=== PATIENT | male | born 1940 | race Caucasian/White ===

== ENCOUNTER 2017-07-14 08:17 | Observation (INO) | payer MEDICARE ==
[~2017-07-14] VITALS: Ht 182.9 cm; Wt 90.7 kg
[2017-07-14] MEDS ORDERED: ALBUTEROL/IPRATROPIUM 3 ML NEB NEB ONE ×2 (08:30→11:00)
[2017-07-14] MEDS ORDERED: DEXAMETHASONE SOD PHOS 10 MG/1 ML VIAL IV ONE (08:30)
[2017-07-14] MEDS ORDERED: MAGNESIUM SULF 1GRAM/DEXTROSE 100 ML IV ONE (08:30)
[2017-07-14 08:49] LABS: BASOPHILS % 0.3 % (0.0-1.0); EOSINOPHILS # (AUTO) 0.1 (0.0-0.4); EOSINOPHILS % 0.9 % (0.0-6.0); HEMATOCRIT 41.1 % (38.2-49.6); HEMOGLOBIN 13.7 g/dL (14.0-18.0); LYMPHOCYTES # (AUTO) 1.6 (1.0-3.2); LYMPHOCYTES % 13.6 % (18.0-39.1); MEAN CORPUSCULAR HEMOGLOBIN 30.2 pg (28-32); MEAN CORPUSCULAR HGB CONC 33.3 g/dL (31-35); MEAN CORPUSCULAR VOLUME 90.5 fL (81-99); MONOCYTES % 8.5 % (4.4-11.3); NEUTROPHILS # (AUTO) 9.1 (2.1-6.9); NEUTROPHILS % 76.1 % (38.7-80.0); PLATELET COUNT 216 x10e3/uL (140-360); RED BLOOD COUNT 4.54 x10e6/uL (4.3-5.7); RED CELL DISTRIBUTION WIDTH 13.7 % (11.7-14.4)
[2017-07-14 09:02] LABS: ALANINE AMINOTRANSFERASE 10 IU/L (0-55); ALBUMIN 3.5 g/dL (3.5-5.0); ALKALINE PHOSPHATASE 68 IU/L (40-150); ANION GAP 15.3 mmol/L (8-16); BLOOD UREA NITROGEN 14 mg/dL (7-26); BUN/CREATININE RATIO 15 (6-25); CALCIUM 9.4 mg/dL (8.4-10.2); CARBON DIOXIDE 27 mmol/L (22-29); CHLORIDE 101 mmol/L (98-107); CREATININE, SERUM 0.95 mg/dL (0.72-1.25); EST GLOMERULAR FILTRATION RATE > 60 ML/MIN (60-); GLUCOSE 185 mg/dL (74-118); POTASSIUM 4.3 mmol/L (3.5-5.1); SODIUM 139 mmol/L (136-145)
[2017-07-14] MEDS ORDERED: FLOMAX0.4 MG PO (09:05)
[2017-07-14] MEDS ORDERED: METOPROLOL TART25 MG PO (09:05)
[2017-07-14] MEDS ORDERED: METFORMIN HCL500 MG PO (09:05)
[2017-07-14] MEDS ORDERED: KLONOPIN1 MG PO (09:05)
[2017-07-14] MEDS ORDERED: POTASSIUM CHLO20 ME1 PO (09:05)
[2017-07-14] MEDS ORDERED: CRESTOR10 MG PO (09:05)
[2017-07-14] MEDS ORDERED: LISINOPRIL10 MG PO (09:05)
[2017-07-14] MEDS ORDERED: VENTOLIN HFA18 GM INH (09:05)
[2017-07-14] MEDS ORDERED: LORATADINE10 MG PO (09:05)
[2017-07-14] MEDS ORDERED: ASPIR 8181 MG PO (09:05)
[2017-07-14] MEDS ORDERED: MONTELUKAST SOD10 MG PO (09:05)
[2017-07-14] MEDS ORDERED: ALBUTEROL2.5 MG/3 M NEB (09:05)
[2017-07-14] MEDS ORDERED: FUROSEMIDE40 MG PO (09:05)
--- NOTE | 2017-07-14 10:04 | Diagnostic Imaging Report ---
PROCEDURE:CHEST SINGLE (PORTABLE) TECHNIQUE:Single view chest totaling 2 radiographs INDICATION:Shortness of breath; COPD COMPARISON:None. FINDINGS: Ill-defined bilateral interstitial opacity without focal airspace disease. No pleural effusion. Normal heart size. No pleural effusions. Postoperative sequela sternotomy with intact one wires. Intact skeleton. CONCLUSION: Ill-defined bilateral lower lobe predominant interstitial opacity. Consider bronchitis. No evidence of pneumonia. Dictated by: René Land M.D. on 07/14/2017 at 10:05 Electronically approved by: René Land M.D. on 07/14/2017 at 10:05
[2017-07-14] MEDS ORDERED: LEVOFLOXACIN 500MG/D5W 100ML 100 ML IV ONE ×2 (10:45→11:30)
[2017-07-14] MEDS ORDERED: FUROSEMIDE INJ 10 MG/ML 4 ML VIAL IV ONE (10:45)
[2017-07-14] MEDS ORDERED: SODIUM CHLORIDE FLUSH 10 ML SYR INJ PRN (11:00)
[2017-07-14] MEDS ORDERED: LEVOFLOXACIN 500MG/D5W 100ML IV SCH (11:00)
--- OUTSIDE RECORDS SUMMARY | 2017-07-14 11:12 | XMS REPORT ---
Author [facility] Organization [facility] Address Unknown Phone Unavailable Care Team Providers Care Carburizer Name Role Phone GEORGIANA KAUFFMAN Unavailable Unavailable Problems This patient has no known problems. Allergies, Adverse Reactions, Alerts This patient has no known allergies or adverse reactions. Medications This patient has no known medications. Results Test Description Test Time Test Comments Text Results Atomic Results Result Comments CHEST SINGLE (PORTABLE) [place] [id number] [place] [id number] Patient Name: RIVER REDDING MR #: [id number] : 1940 Age/Sex: 77/M Req #: [id number] [facility] Physician: Ordered by: GEORGIANA KAUFFMAN MD Report #: [id number] Location: ER Room/Bed: Procedure: [id number] DX/CHEST SINGLE (PORTABLE) Exam Date: 07/14/17 Exam Time: 924 REPORT STATUS: Signed PROCEDURE: CHEST SINGLE (PORTABLE) TECHNIQUE: Single view chest totaling 2 radiographs INDICATION: Shortness of breath; COPD COMPARISON: None. FINDINGS : Ill-defined bilateral interstitial opacity without focal airspace disease. No pleural effusion. Normal heart size. No pleural effusions. Postoperative sequela sternotomy with intact one wires. Intact skeleton. CONCLUSION: Ill-defined bilateral lower lobe predominant interstitial opacity. Consider bronchitis. No evidence of pneumonia. Dictated by: Suhail Land M.D. on 07/14/2017 at 10:05 Electronically approved by: Suhail Land M.D. on 07/14/2017 at 10:05 Dictated By: SUHAIL LAND MD 1005 Transcribed By: AYDEE on 07/14/17 1005 COPY TO: GEORGIANA KAUFFMAN MD
[2017-07-14] MEDS: ALBUTEROL/IPRATROPIUM 3 ML NEB NEB SCH ×3 (15:00→23:30)
[2017-07-14] MEDS: METHYLPREDNISOLONE SOD SUCC 125 MG/2ML VIAL IV SCH ×2 (15:37→21:22)
[2017-07-14 16:14] VITALS: BP 155/85
[2017-07-14 16:51] VITALS: BP 155/85
[2017-07-14] MEDS ORDERED: FAMOTIDINE 20 MG/2 ML VIAL IV SCH (17:00)
[2017-07-14] MEDS: ENOXAPARIN SOD INJ 40 MG/0.4 ML SYR SC SCH (17:20)
[2017-07-14] MEDS: FAMOTIDINE 20 MG TAB PO SCH (17:20)
[2017-07-14] MEDS: GUAIFENESIN 600MG/DEXTROMETHORPHAN 30MG TABSR PO SCH ×2 (17:20→23:25)
[2017-07-14] MEDS: METOPROLOL TARTRATE 25 MG TAB PO SCH (17:30)
[2017-07-14] MEDS: METFORMIN HCL 500 MG TAB PO SCH (18:00)
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
[2017-07-14] MEDS ORDERED: DEXTROSE 50% SYRINGE 50 ML IV PRN (18:15)
[2017-07-14 20:00] VITALS: BP 132/73
[2017-07-14] MEDS ORDERED: SIMVASTATIN 40 MG TAB PO SCH (21:00)
[2017-07-14 21:20] VITALS: BP 132/73
[2017-07-14] MEDS: CLONAZEPAM 1 MG TAB PO SCH (21:22)
[2017-07-14] MEDS: LISINOPRIL 10 MG TAB PO SCH (21:22)
[2017-07-14] MEDS: SIMVASTATIN 20 MG TAB PO SCH (21:22)
[2017-07-14] MEDS: MONTELUKAST SODIUM 10 MG TAB PO SCH (21:22)
[2017-07-14] MEDS: INSULIN REGULAR, HUMAN 100 UNIT/1 ML 3ML VIAL SQ SCH (21:30)
[2017-07-15] VITALS (7 sets, daily range): BP systolic 111–152; BP diastolic 65–84
[2017-07-15] MEDS: ALBUTEROL/IPRATROPIUM 3 ML NEB NEB SCH ×5 (03:00→20:07)
[2017-07-15] MEDS: GUAIFENESIN 600MG/DEXTROMETHORPHAN 30MG TABSR PO SCH ×4 (05:57→23:38)
[2017-07-15] MEDS: METHYLPREDNISOLONE SOD SUCC 125 MG/2ML VIAL IV SCH ×3 (05:57→20:56)
[2017-07-15 06:44] LABS: BASOPHILS % 0.1 % (0.0-1.0); HEMATOCRIT 37.5 % (38.2-49.6); HEMOGLOBIN 12.5 g/dL (14.0-18.0); LYMPHOCYTES # (AUTO) 0.8 (1.0-3.2); LYMPHOCYTES % 7.8 % (18.0-39.1); MEAN CORPUSCULAR HEMOGLOBIN 30.2 pg (28-32); MEAN CORPUSCULAR HGB CONC 33.3 g/dL (31-35); MEAN CORPUSCULAR VOLUME 90.6 fL (81-99); MONOCYTES # (AUTO) 0.5 (0.2-0.8); MONOCYTES % 4.9 % (4.4-11.3); NEUTROPHILS # (AUTO) 9.1 (2.1-6.9); NEUTROPHILS % 86.8 % (38.7-80.0); PLATELET COUNT 215 x10e3/uL (140-360); RED BLOOD COUNT 4.14 x10e6/uL (4.3-5.7); RED CELL DISTRIBUTION WIDTH 13.2 % (11.7-14.4)
[2017-07-15 07:15] LABS: ANION GAP 13.8 mmol/L (8-16); BLOOD UREA NITROGEN 21 mg/dL (7-26); BUN/CREATININE RATIO 22 (6-25); CALCIUM 8.9 mg/dL (8.4-10.2); CARBON DIOXIDE 27 mmol/L (22-29); CHLORIDE 95 mmol/L (98-107); CREATININE, SERUM 0.96 mg/dL (0.72-1.25); EST GLOMERULAR FILTRATION RATE > 60 ML/MIN (60-); GLUCOSE 165 mg/dL (74-118); POTASSIUM 3.8 mmol/L (3.5-5.1); SODIUM 132 mmol/L (136-145)
[2017-07-15] MEDS: INSULIN REGULAR, HUMAN 100 UNIT/1 ML 3ML VIAL SQ SCH ×4 (07:30→19:56)
[2017-07-15] MEDS ORDERED: FUROSEMIDE 40 MG TAB PO SCH (09:00)
[2017-07-15] MEDS: FAMOTIDINE 20 MG TAB PO SCH ×2 (09:24→17:49)
[2017-07-15] MEDS: ASPIRIN 81 MG CHEW TAB PO SCH (09:24)
[2017-07-15] MEDS: METFORMIN HCL 500 MG TAB PO SCH ×2 (09:24→17:49)
[2017-07-15] MEDS: FUROSEMIDE 20 MG TAB PO SCH (09:25)
[2017-07-15] MEDS: POTASSIUM CHLORIDE 20 MEQ TAB CR PO SCH (09:25)
[2017-07-15] MEDS: TAMSULOSIN HCL 0.4 MG CAP PO SCH (09:25)
[2017-07-15] MEDS: LEVOFLOXACIN 500MG/D5W 100ML 100 ML IV SCH (14:39)
[2017-07-15] MEDS: ENOXAPARIN SOD INJ 40 MG/0.4 ML SYR SC SCH (17:49)
[2017-07-15] MEDS: METOPROLOL TARTRATE 25 MG TAB PO SCH (17:49)
[2017-07-15] MEDS: SIMVASTATIN 20 MG TAB PO SCH (20:56)
[2017-07-15] MEDS: CLONAZEPAM 1 MG TAB PO SCH (20:56)
[2017-07-15] MEDS: LISINOPRIL 10 MG TAB PO SCH (20:56)
[2017-07-15] MEDS: MONTELUKAST SODIUM 10 MG TAB PO SCH (20:56)
[2017-07-16] VITALS: BP 131/72
[2017-07-16 04:00] VITALS: BP 112/58
[2017-07-16] MEDS: GUAIFENESIN 600MG/DEXTROMETHORPHAN 30MG TABSR PO SCH ×3 (05:01→17:46)
[2017-07-16] MEDS: METHYLPREDNISOLONE SOD SUCC 125 MG/2ML VIAL IV SCH ×2 (05:01→15:44)
[2017-07-16 06:38] LABS: BASOPHILS % 0.1 % (0.0-1.0); HEMATOCRIT 34.4 % (38.2-49.6); HEMOGLOBIN 11.7 g/dL (14.0-18.0); LYMPHOCYTES # (AUTO) 0.7 (1.0-3.2); LYMPHOCYTES % 8.2 % (18.0-39.1); MEAN CORPUSCULAR HEMOGLOBIN 30.2 pg (28-32); MEAN CORPUSCULAR VOLUME 88.7 fL (81-99); MONOCYTES # (AUTO) 0.5 (0.2-0.8); MONOCYTES % 5.6 % (4.4-11.3); NEUTROPHILS # (AUTO) 7.6 (2.1-6.9); NEUTROPHILS % 85.3 % (38.7-80.0); PLATELET COUNT 221 x10e3/uL (140-360); RED BLOOD COUNT 3.88 x10e6/uL (4.3-5.7)
[2017-07-16 07:08] LABS: ANION GAP 13.2 mmol/L (8-16); BLOOD UREA NITROGEN 25 mg/dL (7-26); BUN/CREATININE RATIO 28 (6-25); CALCIUM 8.4 mg/dL (8.4-10.2); CARBON DIOXIDE 26 mmol/L (22-29); CHLORIDE 94 mmol/L (98-107); EST GLOMERULAR FILTRATION RATE > 60 ML/MIN (60-); GLUCOSE 162 mg/dL (74-118); MAGNESIUM 1.5 MG/DL (1.3-2.1); POTASSIUM 4.2 mmol/L (3.5-5.1); SODIUM 129 mmol/L (136-145)
[2017-07-16] MEDS: INSULIN REGULAR, HUMAN 100 UNIT/1 ML 3ML VIAL SQ SCH ×3 (07:30→16:30)
[2017-07-16] MEDS: ALBUTEROL/IPRATROPIUM 3 ML NEB NEB SCH ×3 (07:52→15:25)
[2017-07-16 09:03] VITALS: BP 134/77
[2017-07-16] MEDS: FAMOTIDINE 20 MG TAB PO SCH ×2 (09:23→17:46)
[2017-07-16] MEDS: POTASSIUM CHLORIDE 20 MEQ TAB CR PO SCH (09:23)
[2017-07-16] MEDS: METFORMIN HCL 500 MG TAB PO SCH ×2 (09:23→17:46)
[2017-07-16] MEDS: FUROSEMIDE 20 MG TAB PO SCH (09:23)
[2017-07-16] MEDS: ASPIRIN 81 MG CHEW TAB PO SCH (09:23)
[2017-07-16] MEDS: TAMSULOSIN HCL 0.4 MG CAP PO SCH (09:23)
[2017-07-16] MEDS: METOPROLOL TARTRATE 25 MG TAB PO SCH ×2 (09:24→17:46)
[2017-07-16] MEDS: LEVOFLOXACIN 500MG/D5W 100ML 100 ML IV SCH (12:23)
[2017-07-16 12:46] VITALS: BP 132/72
[2017-07-16 16:37] VITALS: BP 146/68
[2017-07-16] MEDS: ENOXAPARIN SOD INJ 40 MG/0.4 ML SYR SC SCH (17:46)
[2017-07-16] MEDS ORDERED: METHYLPREDNISOLONE SOD SUCC 125 MG/2ML VIAL IV SCH (22:00)
[2017-07-16] MEDS ORDERED: METHYLPREDNISOLONE SOD SUCC 40 MG/ML VIAL IV SCH (22:00)
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
== END 2017-07-16 18:24 | disposition left against medical advice (07) ==
LOC: ER 08:17 → ERHOLD 11:08 → IMCU 15:55
PROVIDERS: ADMIT Internal Medicine; ATTEND Internal Medicine
DX: J44.0 Chronic obstructive pulmonary disease with (acute) lower respiratory infection (principal); J18.0 Bronchopneumonia, unspecified organism; J44.1 Chronic obstructive pulmonary disease with (acute) exacerbation; I25.10 Atherosclerotic heart disease of native coronary artery without angina pectoris; Z95.1 Presence of aortocoronary bypass graft; J96.10 Chronic respiratory failure, unspecified whether with hypoxia or hypercapnia; I11.0 Hypertensive heart disease with heart failure; I50.22 Chronic systolic (congestive) heart failure; Z99.81 Dependence on supplemental oxygen; Z87.891 Personal history of nicotine dependence; E11.9 Type 2 diabetes mellitus without complications; Z79.4 Long term (current) use of insulin; J20.9 Acute bronchitis, unspecified; N40.0 Benign prostatic hyperplasia without lower urinary tract symptoms
CPT/HCPCS: 36415 ×3; 71045; 80048 ×2; 80053; 82948 ×3; 83735; 83880 ×2; 84100; 84443; 85025 ×3; 87040; 93005; 93306; 94640 ×6; 97116; 97161; 99284; G0378 ×3; J1100; J1650 ×3; J1940; J1956 ×3; J2930 ×3; J3475

== ENCOUNTER 2019-10-16 01:42 | Inpatient (IN) | payer MEDICARE, OTHER ==
[~2019-10-16] VITALS: Ht 182.9 cm; Wt 90.7 kg
[2019-10-16] VITALS (8 sets, daily range): BP systolic 73–114; BP diastolic 53–112
[~2019-10-16 01:42] MED LIST: ALBUTEROL2.5 MG/3 M NEB; ASPIR 8181 MG PO; CRESTOR10 MG PO; FLOMAX0.4 MG PO; FUROSEMIDE40 MG PO; KLONOPIN1 MG PO; LISINOPRIL10 MG PO; LORATADINE10 MG PO; METFORMIN HCL500 MG PO; METOPROLOL TART25 MG PO; MONTELUKAST SOD10 MG PO; POTASSIUM CHLO20 ME1 PO; VENTOLIN HFA18 GM INH
[2019-10-16] MEDS ORDERED: CEFEPIME 1GM/NS 0.9% 50 ML 50 ML IV STA (01:51)
[2019-10-16] MEDS ORDERED: SODIUM CHLORIDE 0.9% 1000ML 1,000 ML IV STA ×2 (01:52→02:42)
[2019-10-16] MEDS ORDERED: SODIUM CHLORIDE 0.9% 1000ML 1,000 ML ONE (02:00)
[2019-10-16] MEDS ORDERED: SODIUM CHLORIDE 0.9% 500ML 500 ML ONE ×2 (02:00→02:47)
[2019-10-16] MEDS ORDERED: PIPER-TAZ 3.375 GM 50 ML IV STA (02:05)
[2019-10-16 02:20] LABS: BASOPHILS % 0.3 % (0.0-1.0); EOSINOPHILS # (AUTO) 0.1 (0.0-0.4); EOSINOPHILS % 0.5 % (0.0-6.0); HEMATOCRIT 33.8 % (38.2-49.6); HEMOGLOBIN 10.7 g/dL (14.0-18.0); LYMPHOCYTES # (AUTO) 1.7 (1.0-3.2); LYMPHOCYTES % 17.4 % (18.0-39.1); MEAN CORPUSCULAR HEMOGLOBIN 31.3 pg (28-32); MEAN CORPUSCULAR HGB CONC 31.7 g/dL (31-35); MEAN CORPUSCULAR VOLUME 98.8 fL (81-99); MONOCYTES # (AUTO) 1.2 (0.2-0.8); MONOCYTES % 12.5 % (4.4-11.3); NEUTROPHILS # (AUTO) 6.5 (2.1-6.9); PLATELET COUNT 371 x10e3/uL (140-360); RED BLOOD COUNT 3.42 x10e6/uL (4.3-5.7); RED CELL DISTRIBUTION WIDTH 17.1 % (11.7-14.4)
[2019-10-16 02:45] LABS: ALBUMIN 1.4 g/dL (3.5-5.0); ANION GAP 8.6 mmol/L (8-16); CREATININE, SERUM 1.21 mg/dL (0.72-1.25)
--- NOTE | 2019-10-16 02:46 | Diagnostic Imaging Report ---
Examination: Single AP view of the chest. COMPARISON: Portable chest 07/14/2017 INDICATION: Cough, shortness of breath IMPRESSION: 1. Lines and Tubes: None 2. Lungs are grossly clear. No consolidation or effusion. 3. Cardiomediastinal silhouette is normal. Pulmonary vasculature is normal. 4. No acute bony abnormalities. Signed by: Dr. Jeff Dillon M.D. on 10/16/2019 2:43 AM
[2019-10-16 02:52] LABS: CREATINE KINASE MB 1.4 ng/mL (0-5.0)
[2019-10-16 02:56] LABS: INR 0.92; PARTIAL THROMBOPLASTIN TIME 22.9 seconds (23.8-35.5); PROTHROMBIN TIME 12.9 seconds (11.9-14.5)
[2019-10-16 03:02] LABS: POTASSIUM 2.6 mmol/L (3.5-5.1)
[2019-10-16] MEDS ORDERED: POTASSIUM CHLORIDE 20 MEQ TAB CR PO STA (03:02)
[2019-10-16 03:03] LABS: CALCIUM 4.3 mg/dL (8.4-10.2)
[2019-10-16 03:11] LABS: CLARITY,URINE TURBID (CLEAR); COLOR,URINE YELLOW (YELLOW); LEUKOCYTE ESTERASE ,URINE LARGE (NEGATIVE); NITRITE,URINE POSITIVE (NEGATIVE)
[2019-10-16 03:12] LABS: KETONES,URINE NEGATIVE (NEGATIVE); PROTEIN,URINE DIPSTICK 1+ (NEGATIVE); URINE UROBILINOGEN 0.2 mg/dL (0.2 - 1)
[2019-10-16 03:13] LABS: BILIRUBIN,URINE NEGATIVE (NEGATIVE)
[2019-10-16 03:14] LABS: BACTERIA,URINE MANY /HPF; EPITHELIAL CELLS,URINE MANY /LPF; RBC,URINE 21-50 /HPF (0-5); WBC,URINE (MAN) >50 /HPF (0-5)
[2019-10-16] MEDS ORDERED: POTASSIUM CHLORIDE 20MEQ/100ML 100 ML IV ONE (03:15)
[2019-10-16] MEDS ORDERED: VANCOMYCIN 1GM/NS 250 ML 250 ML IV STA (03:34)
--- NOTE | 2019-10-16 03:38 | Emergency Department Note ---
History of Present Illnes History of Present Illness Chief Complaint: Respiratory History of Present Illness This is a 79 year old male arrives to the ED after sustaining a mechanical fall . Chief Complaint Comment 79 Y/O MALE PT ORIENTED TO PERSON, PLACE PRESENTS TO ED WITH REPORT OF FALL WHEN PT WAS ATTEMPTING TO TRANSFER SELF FROM HIS BED TO THE BEDSIDE COMMODE; PT DENIES LOC, DENIES ANY PAIN; 18 GAUGE IV CATH PLACED TO PTS RIGHT AC, BLOOD OBTAINED FOR LAB ANALYSIS, CULTURES, LACTIC, COVID SWAB OBTAINED; EKG PERFORMED AND GIVEN TOE R FOR REVIEW; PT WITH BRUISING IN VARIOUS STAGES OF HEALING NOTED TO BUE; PT IS ON CONT O2 AT HOME VIA NC AT 2 LPM; RESP ARE SHALLOW, UNLABORED, SPO2 98%; URINE SAMPLE OBTAINED VIA STRAIGHT CATH PER MD ORDERS, PT TOLERATED WELL, URINE CLOUDY, SEDIMENT AND FOUL ODOR NOTED Historian: Patient, Faculty Neuropsychologist/EMS Arrival Mode: [facility] Treatment RETAIL INTERIOR DESIGNER: IV Additional Treatment RETAIL INTERIOR DESIGNER: LEFT FA Onset (how long ago): unknown Onset quality: unable to specify Timing of current episode: constant Progression: unable to specify Relieving factors: none Past Medical/Family History Physician Review I have reviewed the patient's past medical and family history. Any updates have been documented here. Past Medical History Recent Fever: No Clinical Suspicion of Infectio: Yes New/Unexplained Change in Ment: No Past Medical History: Hypertension, Diabetes, COPD, CHF, CAD, Anemia, Hyperlipedemia, DVT/PE, Chronic Kidney Disease Other Medical History: PNEUMONIA HYPERKALEMIA HYPOMAGNESEMIA BPH CHRONIC FALLS DYSPHAGIA Past Surgical History: CABG Social History Smoking Cessation: Former smoker Counseling Performed: No Alcohol Use: Daily Any Illegal Drug Use: No TB Exposure/Symptoms: No Physically hurt or threatened: No Family History Family history of heart diseas: Yes Other Last Tetanus: unk Any Pre-Existing Lines (PICC,: No Is patient up to date on immun: Yes Last Flu: denies Last Pneumovax: denies Review of Systems Review of Systems Constitutional: Reports as per HPI, Reports weakness EENTM: Reports no symptoms Cardiovascular: Reports no symptoms Respiratory: Reports no symptoms Gastrointestinal: Reports no symptoms Genitourinary: Reports no symptoms Musculoskeletal: Reports no symptoms Integumentary: Reports no symptoms Neurological: Reports no symptoms Psychological: Reports no symptoms Endocrine: Reports no symptoms Hematological/Lymphatic: Reports no symptoms Physical Exam Related Data Allergies: Coded Allergies: No Known Allergies (Unverified , 07/14/17) Triage Vital Signs Vital Signs Date Time Temp Pulse Resp B/P (MAP) Pulse Ox O2 Delivery O2 Flow Rate FiO2 10/16/19 01:47 97.7 102 24 70/44 98 Vital signs reviewed: Yes Physical Exam CONSTITUTIONAL Constitutional: Present obese, Present ill appearing HENT HENT: Present normocephalic, Present atraumatic, Present oropharynx clear/moist, Present nose normal EYES Eyes: Reports PERRL, Reports conjunctivae normal NECK Neck: Present ROM normal PULMONARY Pulmonary: Present respiratory distress (mild tachypnea with decreased breath sounds in bilateral lower lung bright) CARDIOVASCULAR Cardiovascular: Present regular rhythm, Present heart sounds normal, Present capillary refill normal, Present tachycardia GASTROINTESTINAL GENITOURINARY Genitourinary: Present penis normal SKIN Skin: Present warm, Present dry MUSCULOSKELETAL NEUROLOGICAL Neurological: Present alert, Present no gross motor or sensory deficits PSYCHOLOGICAL Psychological: Present mood/affect normal Results Laboratory Result Diagram: 10/16/19 0154 10/16/19 0154 Laboratory Laboratory Tests Test 10/16/19 02:35 10/16/19 01:54 White Blood Count 9.52 x10e3/uL (4.8-10.8) Red Blood Count 3.42 x10e6/uL (4.3-5.7) Hemoglobin 10.7 g/dL (14.0-18.0) Hematocrit 33.8 % (38.2-49.6) Mean Corpuscular Volume 98.8 fL (81-99) Mean Corpuscular Hemoglobin 31.3 pg (28-32) Mean Corpuscular Hemoglobin Concent 31.7 g/dL (31-35) Red Cell Distribution Width 17.1 % (11.7-14.4) Platelet Count 371 x10e3/uL (140-360) Neutrophils (%) (Auto) 68.0 % (38.7-80.0) Lymphocytes (%) (Auto) 17.4 % (18.0-39.1) Monocytes (%) (Auto) 12.5 % (4.4-11.3) Eosinophils (%) (Auto) 0.5 % (0.0-6.0) Basophils (%) (Auto) 0.3 % (0.0-1.0) Neutrophils # (Auto) 6.5 (2.1-6.9) Lymphocytes # (Auto) 1.7 (1.0-3.2) Monocytes # (Auto) 1.2 (0.2-0.8) Eosinophils # (Auto) 0.1 (0.0-0.4) Basophils # (Auto) 0.0 (0.0-0.1) Absolute Immature Granulocyte (auto 0.12 x10e3/uL (0-0.1) Prothrombin Time 12.9 seconds (11.9-14.5) Prothromb Time International Ratio 0.92 Activated Partial Thromboplast Time 22.9 seconds (23.8-35.5) Urine Color Yellow (YELLOW) Urine Clarity Turbid (CLEAR) Urine pH 6 (5 - 7) Urine Specific [place] 1.030 (1.010-1.025) Urine Protein 1+ (NEGATIVE) Urine Glucose (UA) Negative (NEGATIVE) Urine Ketones Negative (NEGATIVE) Urine Blood Large (NEGATIVE) Urine Nitrite Positive (NEGATIVE) Urine Bilirubin Negative (NEGATIVE) Urine Urobilinogen 0.2 mg/dL (0.2 - 1) Urine Leukocyte Esterase Large (NEGATIVE) Urine RBC 21-50 /HPF (0-5) Urine WBC >50 /HPF (0-5) Urine Epithelial Cells Many /LPF (NONE) Urine Bacteria Many /HPF (NONE) Sodium Level 146 mmol/L (136-145) Potassium Level 2.6 mmol/L (3.5-5.1) Chloride Level 128 mmol/L (98-107) Carbon Dioxide Level 12 mmol/L (22-29) Anion Gap 8.6 mmol/L (8-16) Blood Urea Nitrogen 34 mg/dL (7-26) Creatinine 1.21 mg/dL (0.72-1.25) Estimat Glomerular Filtration Rate 58 ML/MIN (60-) BUN/Creatinine Ratio 28 (6-25) Glucose Level 71 mg/dL (74-118) Calcium Level 4.3 mg/dL (8.4-10.2) Total Bilirubin 0.2 mg/dL (0.2-1.2) Aspartate Amino Transf (AST/SGOT) 30 IU/L (5-34) Alanine Aminotransferase (ALT/SGPT) 35 IU/L (0-55) Alkaline Phosphatase 53 IU/L (40-150) Creatine Kinase 89 IU/L (30-200) Creatine Kinase MB 1.40 ng/mL (0-5.0) Troponin I 0.014 ng/mL (0-0.300) B-Type Natriuretic Peptide 142.7 pg/mL (0-100) Total Protein 2.8 g/dL (6.5-8.1) Albumin 1.4 g/dL (3.5-5.0) Globulin 1.4 g/dL (2.3-3.5) Albumin/Globulin Ratio 1.0 (0.8-2.0) Lab results reviewed: Yes Imaging Imaging results reviewed: Yes Procedures 12 Lead ECG Interpretation ECG Interpretation : ECG: ECG 1 Motor Hotel Manager: Interpreted by ED physician ST segments normal: Yes T wave inversion: V1, V2 Clinical Impression: abnormal ECG Critical Care Time Total Critical Care Time (min): 75 Critical care time exclusive o: separately billable procedures Critcal care necessary due to: shock Assessment & Plan Medical Decision Making MDM 79-year-old male arrives the ED by EMS for a mechanical fall. On arrival to the wrist. Patient had be markedly hypotensive with a blood pressure of 70/44 followed by 64/45. Septic shock noted at 2:15 given the low blood pressures concerning for organ dysfunction, suspected source in the urine, SIRS criteria are met with heart rate and respiratory rate being elevated. Blood cultures and lactic acid obtained, broad-spectrum antibiotics given in the form of Zosyn. 3 L normal saline given her 30 mg/kg ideal body weight. Bedside volume reassessment done which showed improvement with fluid resuscitation Septic Shock Time: 214 1. Source (time: 313 ) UA 2. SIRS (time: 146) RR 23, HR 102 3. Organ Dysfunction (time: 212) MAP <65 (TWICE) Interventions: Blood cultures collected Lactic acid collected Broad Spectrum antibiotics given START 0151 STOP 0 Lactic acid #1: 1.6 (time resulted 402) Lactic acid #2: Not indicated 30cc/kg IVF bolus given by IBW (80kg) Bedside volume reassessment done with improvement noted at 0301 Assessment & Plan Final Impression: (1) Septic shock (2) Urinary tract infection (3) Hypokalemia Depart Disposition: ADMITTED Last Vital Signs Date Time Temp Pulse Resp B/P (MAP) Pulse Ox O2 Delivery O2 Flow Rate FiO2 10/16/19 03:10 89 19 83/49 95 10/16/19 01:47 97.7 Home Meds Reported Medications Albuterol Sulfate (VENTOLIN HFA) 18 Gm Hfa.aer.ad, 2 INH INH Q4HR PRN for SHORTNESS OF BREATH 07/14/17 Tamsulosin Hcl* (FLOMAX*) 0.4 Mg Cap, 0.4 MG PO DAILY, #30 CAP 07/14/17 Rosuvastatin Calcium (CRESTOR) 10 Mg Tab, 10 MG PO HS THERAPEUTICALLY SUBSTITUTED WITH SIMVASTATIN 40MG 07/14/17 Montelukast Sodium (MONTELUKAST SODIUM) 10 Mg Tablet, 10 MG PO DAILY, #30 TAB 07/14/17 Metoprolol Tartrate (METOPROLOL TARTRATE) 25 Mg Tablet, 25 MG PO BID, TAB 07/14/17 Metformin Hcl (METFORMIN HCL) 500 Mg Tablet, 1000 MG PO BID, #60 TAB 07/14/17 Loratadine (LORATADINE) 10 Mg Tablet, 10 MG PO DAILY, #30 TAB 07/14/17 Clonazepam (KLONOPIN) 1 Mg Tablet, 1 MG PO HS PRN for SLEEP 07/14/17 Aspirin (ASPIR 81) 81 Mg Tablet.dr, 81 MG PO DAILY 07/14/17 Albuterol Sulfate (ALBUTEROL SULFATE) 2.5 Mg/3 Ml Vial.neb, 1 VIAL NEB QID PRN for SHORTNESS OF BREATH 07/14/17 Discontinued Reported Medications Potassium Chloride (POTASSIUM CHLORIDE) 20 Meq Tab.er.prt, 20 MEQ PO BID 07/14/17 Lisinopril (LISINOPRIL) 10 Mg Tablet, 20 MG PO HS, #30 TAB 07/14/17 Furosemide (FUROSEMIDE) 40 Mg Tablet, 40 MG PO Daily, #30 TAB 07/14/17 Medications in the ED Cefepime HCl 50 ml @ 100 mls/hr ONCE STAT IV ; Start 10/16/19 at 01:51; Stop 10/16/19 at 02:28; Status DC Sodium Chloride 1,000 ml @ 0 mls/hr Q0M STAT IV Last administered on 10/16/19at 01:55; Admin Dose 500 MLS/HR; Start 10/16/19 at 01:52; Stop 10/16/19 at 02:28; Status DC Sodium Chloride 500 ml @ ud STK-MED ONCE .ROUTE ; Start 10/16/19 at 02:00; Stop 10/16/19 at 01:55; Status DC Sodium Chloride 1,000 ml @ ud STK-MED ONCE .ROUTE ; Start 10/16/19 at 02:00; Stop 10/16/19 at 01:55; Status DC Piperacillin Sod/ Tazobactam Sod 50 ml @ 50 mls/hr NOW STAT IV Last administered on 10/16/19at 02:12; Admin Dose 50 MLS/HR; Start 10/16/19 at 02:05; Stop 10/16/19 at 03:04; Status DC Sodium Chloride 500 ml @ ud STK-MED ONCE .ROUTE ; Start 10/16/19 at 02:47; Stop 10/16/19 at 02:42; Status DC Sodium Chloride 1,000 ml @ 0 mls/hr Q0M STAT IV Last administered on 10/16/19at 02:45; Admin Dose 999 MLS/HR; Start 10/16/19 at 02:42; Stop 10/16/19 at 02:43; Status DC Potassium Chloride 40 meq NOW STAT PO ; Start 10/16/19 at 03:02; Stop 10/16/19 at 03:10; Status DC Potassium Chloride 100 ml @ 50 mls/hr ONCE ONCE IV ; Start 10/16/19 at 03:15; Stop 10/16/19 at 05:14 EDSON MACIAS DO Oct 16, 2019 03:38
[2019-10-16] MEDS ORDERED: SODIUM CHLORIDE 0.9% 1000ML 1,000 ML IV ONE (03:45)
[2019-10-16] MEDS ORDERED: SODIUM CHLORIDE 0.9% 1000ML 1,000 ML IV SCH (03:45)
[2019-10-16] MEDS ORDERED: VANCOMYCIN 1GM/NS 250 ML 250 ML ONE (03:47)
[2019-10-16] MEDS: SODIUM CHLORIDE 0.9% 1000ML 1,000 ML IV SCH ×2 (06:18→21:03)
[2019-10-16] MEDS ORDERED: FUROSEMIDE INJ 10 MG/ML 2 ML VIAL IV ONE (09:30)
--- NOTE | 2019-10-16 09:30 | NUR ---
INFORMED DR HOLMAN PATIENT WITH INCREASED CONGESTION AND WHEEZING, ORDERS RECEIVED AND ENTERED. WILL CONTINUE TO MONITOR
[2019-10-16] MEDS: ALBUTEROL/IPRATROPIUM 3 ML NEB NEB PRN (10:00)
--- NOTE | 2019-10-16 11:42 | NUR ---
H&P cc: sob HPI: 79yoM, PCP , developed leg weakness, lying in bed for 3 days; severe fatigue; came to hospital for eval. PMH: DM2, Hypertensive heart ds, COPD, CAD s/p CABG, BPH, PSHX: CABG Allergies; see emr FH/SH; ; occ etoh; hx cigs meds; see MAR rOS; no f/c/s/N/V/D/HAYES/cp/sob/skin rash/back pain/dizziness/ v/s; revd PE tired appearing anicteric ns1s2 mod bs soft nt nd no e/t skin dry flat affect a&ox2; castillo labe/meds revd A/P: 79yoM UTI- IV zosyn Sepsis- IVF; IV abx MOUNIKA- IVF Hypocalcemia- recheck; replace as needed DM2- hba1c/lipids BPH- flomax CAD with hx CABG- asa; statin Jomar Bailey MD, PhD.
[2019-10-16] MEDS: PIPER-TAZ 3.375 GM 50 ML IV SCH ×2 (12:41→18:19)
[2019-10-16 16:36] LABS: CALCIUM 8.1 mg/dL (8.4-10.2); CREATININE, SERUM 2.07 mg/dL (0.72-1.25); PHOSPHORUS 4.2 MG/DL (2.3-4.7)
[2019-10-16 17:21] LABS: CHOL/HDL RATIO 3.8 (3.9-4.7)
[2019-10-16] MEDS ORDERED: ACETAMINOPHEN 325 MG TAB PO PRN (17:45)
[2019-10-16] MEDS ORDERED: ONDANSETRON HCL INJ 2MG/ML 2ML 2 MG/ML VIAL IV PRN (17:45)
[2019-10-16] MEDS ORDERED: DOCUSATE SODIUM 100 MG CAP PO PRN (17:45)
[2019-10-16] MEDS ORDERED: SIMVASTATIN 40 MG TAB PO SCH ×2 (21:00)
[2019-10-16] MEDS: SIMVASTATIN 20 MG TAB PO SCH (21:03)
[2019-10-16] MEDS: MONTELUKAST SODIUM 10 MG TAB PO SCH (21:03)
[2019-10-16] MEDS: ZOLPIDEM TARTRATE 5 MG TAB PO PRN (21:04)
--- NOTE | 2019-10-16 23:53 | NUR ---
PT BP WENT FROM 81/69 TO 75/[address] HOLMAN TO NOTIFY AND WAS ORDERED TO GIVE 500ML BOLUS AT THIS TIME. WILL CONT TO MONITOR.
[2019-10-17] VITALS (11 sets, daily range): BP systolic 70–109; BP diastolic 49–90
[2019-10-17] MEDS ORDERED: SODIUM CHLORIDE 0.9% 500ML 500 ML IV ONE
[2019-10-17] MEDS: PIPER-TAZ 3.375 GM 50 ML IV SCH ×4 (00:03→20:45)
[2019-10-17 04:45] LABS: BASOPHILS % 0.5 % (0.0-1.0); EOSINOPHILS # (AUTO) 0.1 (0.0-0.4); EOSINOPHILS % 0.6 % (0.0-6.0); HEMATOCRIT 31.8 % (38.2-49.6); HEMOGLOBIN 9.8 g/dL (14.0-18.0); LYMPHOCYTES # (AUTO) 1.3 (1.0-3.2); LYMPHOCYTES % 15.7 % (18.0-39.1); MEAN CORPUSCULAR HEMOGLOBIN 30.9 pg (28-32); MEAN CORPUSCULAR HGB CONC 30.8 g/dL (31-35); MEAN CORPUSCULAR VOLUME 100.3 fL (81-99); MONOCYTES # (AUTO) 0.9 (0.2-0.8); MONOCYTES % 10.4 % (4.4-11.3); NEUTROPHILS % 71.8 % (38.7-80.0); PLATELET COUNT 255 x10e3/uL (140-360); RED BLOOD COUNT 3.17 x10e6/uL (4.3-5.7); RED CELL DISTRIBUTION WIDTH 17.2 % (11.7-14.4)
[2019-10-17 05:11] LABS: ALBUMIN 2.6 g/dL (3.5-5.0); ALBUMIN/GLOBULIN RATIO 0.9 (0.8-2.0); ANION GAP 10.7 mmol/L (8-16); CALCIUM 8.4 mg/dL (8.4-10.2); CREATININE, SERUM 1.62 mg/dL (0.72-1.25); POTASSIUM 4.7 mmol/L (3.5-5.1)
--- NOTE | 2019-10-17 05:26 | NUR ---
IM- progress note O/N; see below rOS; no f/c/s/N/V/D/HAYES/cp/sob/skin rash/back pain/dizziness/ v/s; revd PE tired appearing anicteric ns1s2 mod bs soft nt nd no e/t skin dry flat affect a&ox2; castillo labe/meds revd A/P: 79yoM UTI- IV zosyn Sepsis- IVF; IV abx MOUNIKA- IVF Hypocalcemia- recheck; replace as needed DM2- hba1c/lipids BPH- flomax CAD with hx CABG- asa; statin 6-29 cont care; f/u cx. Jomar Bailey MD, PhD.
[2019-10-17] MEDS: TAMSULOSIN HCL 0.4 MG CAP PO SCH (09:43)
[2019-10-17] MEDS: LORATADINE 10 MG TAB PO SCH (09:43)
[2019-10-17] MEDS: ASPIRIN 81 MG CHEW TAB PO SCH (09:43)
[2019-10-17] MEDS: SODIUM CHLORIDE 0.9% 1000ML 1,000 ML IV SCH (20:45)
[2019-10-17] MEDS: MONTELUKAST SODIUM 10 MG TAB PO SCH (20:48)
[2019-10-17] MEDS: SIMVASTATIN 20 MG TAB PO SCH (20:48)
[2019-10-17] MEDS: ZOLPIDEM TARTRATE 5 MG TAB PO PRN (20:48)
[2019-10-18] VITALS (8 sets, daily range): BP systolic 80–102; BP diastolic 57–74
[2019-10-18] MEDS: PIPER-TAZ 3.375 GM 50 ML IV SCH ×4 (00:27→17:16)
[2019-10-18] MEDS: LORATADINE 10 MG TAB PO SCH (08:52)
[2019-10-18] MEDS: ASPIRIN 81 MG CHEW TAB PO SCH (08:52)
[2019-10-18] MEDS: TAMSULOSIN HCL 0.4 MG CAP PO SCH (08:52)
--- NOTE | 2019-10-18 13:26 | NUR ---
IM- progress note O/N; see below rOS; no f/c/s/N/V/D/HAYES/cp/sob/skin rash/back pain/dizziness/ v/s; revd PE tired appearing anicteric ns1s2 mod bs soft nt nd no e/t skin dry flat affect a&ox2; castillo labe/meds revd A/P: 79yoM UTI- IV zosyn Sepsis- IVF; IV abx MOUNIKA- IVF Hypocalcemia- recheck; replace as needed DM2- hba1c/lipids BPH- flomax CAD with hx CABG- asa; statin 6-29 cont care; f/u cx. 6-30 continue IVF; f/u cx. Jomar Bailey MD, PhD.
[2019-10-18] MEDS: ALBUTEROL/IPRATROPIUM 3 ML NEB NEB PRN (19:35)
[2019-10-18] MEDS: MONTELUKAST SODIUM 10 MG TAB PO SCH (21:32)
[2019-10-18] MEDS: SIMVASTATIN 20 MG TAB PO SCH (21:32)
[2019-10-18] MEDS: SODIUM CHLORIDE 0.9% 1000ML 1,000 ML IV SCH (21:32)
[2019-10-19] VITALS (8 sets, daily range): BP systolic 90–131; BP diastolic 57–80
[2019-10-19] MEDS: PIPER-TAZ 3.375 GM 50 ML IV SCH ×4 (00:53→17:55)
[2019-10-19 07:42] LABS: ANION GAP 14.4 mmol/L (8-16); BLOOD UREA NITROGEN 15 mg/dL (7-26); BUN/CREATININE RATIO 15 (6-25); CALCIUM 8.9 mg/dL (8.4-10.2); CARBON DIOXIDE 20 mmol/L (22-29); CHLORIDE 114 mmol/L (98-107); EST GLOMERULAR FILTRATION RATE > 60 ML/MIN (60-); GLUCOSE 98 mg/dL (74-118); POTASSIUM 4.4 mmol/L (3.5-5.1); SODIUM 144 mmol/L (136-145)
[2019-10-19] MEDS: ASPIRIN 81 MG CHEW TAB PO SCH (08:13)
[2019-10-19] MEDS: TAMSULOSIN HCL 0.4 MG CAP PO SCH (08:13)
[2019-10-19] MEDS: LORATADINE 10 MG TAB PO SCH (08:13)
[2019-10-19 09:01] LABS: BASOPHILS % 0.5 % (0.0-1.0); EOSINOPHILS % 0.4 % (0.0-6.0); HEMATOCRIT 29.3 % (38.2-49.6); HEMOGLOBIN 9.1 g/dL (14.0-18.0); LYMPHOCYTES # (AUTO) 1.1 (1.0-3.2); LYMPHOCYTES % 13.8 % (18.0-39.1); MEAN CORPUSCULAR HEMOGLOBIN 31.1 pg (28-32); MEAN CORPUSCULAR HGB CONC 31.1 g/dL (31-35); MONOCYTES # (AUTO) 0.8 (0.2-0.8); MONOCYTES % 10.6 % (4.4-11.3); NEUTROPHILS # (AUTO) 5.8 (2.1-6.9); NEUTROPHILS % 73.4 % (38.7-80.0); PLATELET COUNT 228 x10e3/uL (140-360); RED BLOOD COUNT 2.93 x10e6/uL (4.3-5.7); RED CELL DISTRIBUTION WIDTH 17.5 % (11.7-14.4)
--- NOTE | 2019-10-19 14:38 | NUR ---
CALLED AND SPOKE WITH LEA ABOUT SNF ORDER, SHE STATES SHE WOULD LIKE FOR HIM TO RETURN TO [facility], CALLED AND SPOKE WITH MARI [phone], SHE STATES HE WAS THERE PRIOR AND WILL BE ABLE TO ACCEPT A PATIENT BEGINING TOMORROW AND WILL ONLY HAVE 1 BED AVAILABLE, FAXING CLINICALS TO [phone]
--- NOTE | 2019-10-19 15:09 | NUR ---
COMPLETED COVID FORM, PASRR, AND RTF AND PUT WITH PACKET WAITING ON AUTH.
[2019-10-19] MEDS: SODIUM CHLORIDE 0.9% 1000ML 1,000 ML IV SCH (19:18)
[2019-10-19] MEDS: SIMVASTATIN 20 MG TAB PO SCH (20:41)
[2019-10-19] MEDS: MONTELUKAST SODIUM 10 MG TAB PO SCH (20:41)
--- NOTE | 2019-10-19 21:48 | NUR ---
IM- progress note O/N; see below rOS; no f/c/s/N/V/D/HAYES/cp/sob/skin rash/back pain/dizziness/ v/s; revd PE tired appearing anicteric ns1s2 mod bs soft nt nd no e/t skin dry flat affect a&ox2; castillo labe/meds revd A/P: 79yoM UTI- IV zosyn Sepsis- IVF; IV abx MOUNIKA- IVF Hypocalcemia- recheck; replace as needed DM2- hba1c/lipids BPH- flomax CAD with hx CABG- asa; statin 6-29 cont care; f/u cx. 6-30 continue IVF; f/u cx. 7-1 MOUNIKA resolving; d/c planning to SNF due to severe physical deconditioning max assist. Jomar Bailey MD, PhD.
[2019-10-20] VITALS (9 sets, daily range): BP systolic 92–114; BP diastolic 60–73
[2019-10-20] MEDS: PIPER-TAZ 3.375 GM 50 ML IV SCH ×4 (00:05→17:33)
[2019-10-20] MEDS: TAMSULOSIN HCL 0.4 MG CAP PO SCH (08:45)
[2019-10-20] MEDS: ASPIRIN 81 MG CHEW TAB PO SCH (08:45)
[2019-10-20] MEDS: LORATADINE 10 MG TAB PO SCH (08:45)
--- NOTE | 2019-10-20 12:40 | NUR ---
FAXED UPDATE FROM YESTERDAY TO MARI AT [facility].
--- NOTE | 2019-10-20 13:59 | NUR ---
IM- progress note O/N; see below rOS; no f/c/s/N/V/D/HAYES/cp/sob/skin rash/back pain/dizziness/ v/s; revd PE tired appearing anicteric ns1s2 mod bs soft nt nd no e/t skin dry flat affect a&ox2; castillo labe/meds revd A/P: 79yoM UTI- IV zosyn Sepsis- IVF; IV abx MOUNIKA- IVF Hypocalcemia- recheck; replace as needed DM2- hba1c/lipids BPH- flomax CAD with hx CABG- asa; statin 6-29 cont care; f/u cx. 6-30 continue IVF; f/u cx. 7-1 MOUNIKA resolving; d/c planning to SNF due to severe physical deconditioning max assist. 7-2 Physical deconditioning; SNF pending; Jomar Bailey MD, PhD.
--- NOTE | 2019-10-20 15:31 | NUR ---
CALLED AND LEFT MESSAGE WITH MARI TO SEE IF HAVE AUTH, LEFT MESSAGE FOR RETURN CALL.
[2019-10-20] MEDS: SODIUM CHLORIDE 0.9% 1000ML 1,000 ML IV SCH (19:18)
[2019-10-20] MEDS: SIMVASTATIN 20 MG TAB PO SCH (21:06)
[2019-10-20] MEDS: MONTELUKAST SODIUM 10 MG TAB PO SCH (21:06)
[2019-10-21] VITALS (9 sets, daily range): BP systolic 96–111; BP diastolic 55–87
[2019-10-21] MEDS: PIPER-TAZ 3.375 GM 50 ML IV SCH ×5 (05:18→23:25)
--- NOTE | 2019-10-21 07:49 | NUR ---
SHELTER FACILITY DISCHARGE INFORMATION PATIENT HAS BEEN ACCEPTED TO: NAME: LOU CARPENTER ADDRESS:[id number] [facility] MD:ADAMARIS ROOM:509 NURSE CALL REPORT TO: [phone] IMM SIGNED AND OBTAINED (if applicable): IMM THE FOLLOWING DOCUMENTS MUST ACCOMPANY PATIENT FOR TRANSFER: COPIED CHART: PACKET
[2019-10-21] MEDS: LORATADINE 10 MG TAB PO SCH (10:30)
[2019-10-21] MEDS: TAMSULOSIN HCL 0.4 MG CAP PO SCH (10:30)
[2019-10-21] MEDS: ASPIRIN 81 MG CHEW TAB PO SCH (10:30)
--- NOTE | 2019-10-21 11:42 | NUR ---
D/C summary Principal Dx: UTI- IV zosyn Sepsis- IVF; IV abx MOUNIKA- IVF Hypocalcemia- recheck; replace as needed secondary Dx: DM2- hba1c/lipids BPH- flomax CAD with hx CABG- asa; statin 6-29 cont care; f/u cx. 6-30 continue IVF; f/u cx. 7-1 MOUNIKA resolving; d/c planning to SNF due to severe physical deconditioning max assist. d/c to SNF stable f/u pcp 1 week d/c>35mins Jomar Bailey MD, PhD.
--- NOTE | 2019-10-21 15:31 | NUR ---
CALLED TO GIVE REPORT TO TO [facility], SPOKE TO MARI, SHE STATED, "I HAVE TO DELAY THIS TRANSFER, WE HAVE A COVID POSITIVE PATIENT IN THERE, I AM WAITING FOR THEM TO BE TRANSFERRED OUT AND HAVE THE ROOM DEEP CLEANED THEN ICAN TAKE THE PATIENT."
--- NOTE | 2019-10-21 16:07 | NUR ---
CALLED [facility] TO CHECK IF ROOM 509 IS AVAILABLE, PIPE INSULATOR STATED, "THE ROOM IS STILL BLOCKED THE OTHER PATIENT IS STILL HERE."
--- NOTE | 2019-10-21 18:23 | NUR ---
CALLED [phone] FOR [facility], SPOKE TO SAMIRA TO CHECK IF ROOM 509 IS AVAILABLE TO RECEIVE THE PATIENT, SHE STATED, "I WILL CALL HER SUPERVISOR [employer] TO SEE IF THE ROOM IS AVAILABLE THEN CALL YOU BACK."
--- NOTE | 2019-10-21 19:06 | NUR ---
SPOKE TO MARI AT [facility], SHE STATED, "WE GOT THE PATIENT OUT OF ROOM 509, WE CANNOT ACCEPT AN ADMISSION ON THE WEEKENDS DUE TO DECREASED STAFF, WE CAN TAKE HIM THEN."
--- NOTE | 2019-10-21 20:30 | NUR ---
PT TRANSPORTED BY HOSPITAL BED TO ROOM 103. PT IS AAOX3, RR EVEN AND NON-LABORED, O2 BY NC AT 1L. NO S/SX OF DISTRESS NOTED. ORIENTED PT TO NEW ROOM, CALL LIGHT, PHONE, BED CONTROLS AND LIGHTS. LEFT PT LAYING SEMI FOWLERS IN BED, BED IN LOW LOCKED POSITION, SIDE RAILS UPX3, CALL LIGHT AND PHONE WITHIN REACH. BED ALARM ACTIVATED ZONE 1.
--- NOTE | 2019-10-21 21:00 | NUR ---
IV TO (L) FA NOTED TO BE LEAKING WHEN FLUSHED. IV DISCONTINUED, CATHETER TIP INTACT, PRESSURE AND DRESSING APPLIED. IV TO (R) AC NOTED TO BE INFILTRATED WHEN FLUSHED. IV DISCONTINUED, CATHETER TIP INTACT. PRESSURE AND DRESSING APPLIED. NEW IV STARTED TO (R) FA. FLUSHES WITHOUT PAIN OR DIFFICULTY, BLOOD RETURN NOTED.
[2019-10-21] MEDS: SODIUM CHLORIDE 0.9% 1000ML 1,000 ML IV SCH (21:03)
[2019-10-21] MEDS: SIMVASTATIN 20 MG TAB PO SCH (21:03)
[2019-10-21] MEDS: MONTELUKAST SODIUM 10 MG TAB PO SCH (21:03)
--- NOTE | 2019-10-21 23:26 | NUR ---
(L) AC DRESSING FROM IV REMOVAL SITE CDI BUT LARGE HEMATOMA NOTED TO (L) MEDIAL ELBOW THAT SPANS PROXIMAL AND DISTAL TO ELBOW. WRAPPED AC WITH COBAN AND WILL CONTINUE TO MONITOR.
[2019-10-22] VITALS (8 sets, daily range): BP systolic 99–132; BP diastolic 54–78
[2019-10-22] MEDS: PIPER-TAZ 3.375 GM 50 ML IV SCH ×4 (05:14→23:38)
[2019-10-22] MEDS: ASPIRIN 81 MG CHEW TAB PO SCH (08:19)
[2019-10-22] MEDS: TAMSULOSIN HCL 0.4 MG CAP PO SCH (08:19)
[2019-10-22] MEDS: LORATADINE 10 MG TAB PO SCH (08:19)
--- NOTE | 2019-10-22 11:54 | NUR ---
IM- progress note O/N; see below rOS; no f/c/s/N/V/D/HAYES/cp/sob/skin rash/back pain/dizziness/ v/s; revd PE tired appearing anicteric ns1s2 mod bs soft nt nd no e/t skin dry flat affect a&ox2; castillo labe/meds revd A/P: 79yoM UTI- IV zosyn Sepsis- IVF; IV abx MOUNIKA- IVF Hypocalcemia- recheck; replace as needed DM2- hba1c/lipids BPH- flomax CAD with hx CABG- asa; statin 6-29 cont care; f/u cx. 6-30 continue IVF; f/u cx. 7-1 MOUNIKA resolving; d/c planning to SNF due to severe physical deconditioning max assist. 7-2 Physical deconditioning; SNF pending; 7-3 d/c today 7-4 bed not available at facility; d/c when bed available at SNF Jomar Bailey MD, PhD.
--- NOTE | 2019-10-22 12:32 | NUR ---
Nutrition Screen Note RD Recommendation for Physician: Continue diet as ordered Plan of Care: RD following monitoring for tolerance and adequacy Nutrition reason for involvement: LOS Primary Diagnose(s): Septic Shock/UTI PMH: T2DM, overweight/obesity, HTN, CAD, CABG, COPD Ht:72 in Wt:200 lbs BMI:27.1 kg/m2 IBW:[address] Assessment: Initial encounter with patient. Diet Hx: Pt has no known food allergies. Pt is edentulous and states that he has no difficulty chewing or swallowing. Offered a texture modification, but Pt refused. Pt denies any nausea or vomiting, but pt has been having diarrhea. Possibly due to antibiotics. Pt is able to feed himself. Current Diet: Cardiac diet. Malnutrition Evaluation (10/22/2019) The patient does not meet criteria for a specified degree of malnutrition at this time. Will re-evaluate at follow-up as appropriate. Diet Education Needs Assessment: Diet education not indicated at this time. Diet tolerance: Well tolerated Nutrition Care Level: kesha Smith RD, LD, CNSC
[2019-10-22] MEDS: SODIUM CHLORIDE 0.9% 1000ML 1,000 ML IV SCH (18:31)
--- NOTE | 2019-10-22 19:06 | NUR ---
WALKING ROUNDS PERFORMED, RECEIVED PT LAYING SEMI FOWLERS IN BED, AAOX3, RR EVEN AND NON-LABORED, O2 BY NC AT 2L. NO S/SX OF DISTRESS NOTED. LEFT PT LAYING SEMI FOWLERS IN BED, BED IN LOW LOCKED POSITION, SIDE RAILS UPX2, CALL LIGHT AND PHONE WITHIN REACH.
[2019-10-22] MEDS: ALBUTEROL/IPRATROPIUM 3 ML NEB NEB PRN (20:15)
[2019-10-22] MEDS: SIMVASTATIN 20 MG TAB PO SCH (20:42)
[2019-10-22] MEDS: MONTELUKAST SODIUM 10 MG TAB PO SCH (20:42)
--- NOTE | 2019-10-22 21:20 | NUR ---
REPORT GIVEN TO ONCOMING SHIFT. PT IN STABLE CONDITION. NO S/SX OF DISTRESS NOTED.
--- NOTE | 2019-10-22 21:30 | NUR ---
ASSESSMENT DONE.NO RESP.DISTRESS.BED ALARM ON.IV FLUID RUNNING.STABLE CONDITION.
[2019-10-23] VITALS (8 sets, daily range): BP systolic 103–138; BP diastolic 69–84
--- NOTE | 2019-10-23 03:11 | NUR ---
Repositioned.resting in the bed.
[2019-10-23] MEDS: PIPER-TAZ 3.375 GM 50 ML IV SCH ×3 (06:00→18:18)
--- NOTE | 2019-10-23 06:58 | NUR ---
Bed side shift report given to oncoming Rn.stable condition.
--- NOTE | 2019-10-23 07:00 | NUR ---
received bedside report. pt is alert resting in bed, no s/s of distress. call light within reach and bed alarm is on. instructed pt to call RN for help
[2019-10-23] MEDS: ASPIRIN 81 MG CHEW TAB PO SCH (08:17)
[2019-10-23] MEDS: TAMSULOSIN HCL 0.4 MG CAP PO SCH (08:17)
[2019-10-23] MEDS: LORATADINE 10 MG TAB PO SCH (08:17)
[2019-10-23 16:31] LABS: BASOPHILS # (AUTO) 0.1 (0.0-0.1); BASOPHILS % 0.7 % (0.0-1.0); EOSINOPHILS # (AUTO) 0.1 (0.0-0.4); EOSINOPHILS % 0.6 % (0.0-6.0); HEMATOCRIT 29.6 % (38.2-49.6); HEMOGLOBIN 9.1 g/dL (14.0-18.0); LYMPHOCYTES # (AUTO) 1.6 (1.0-3.2); LYMPHOCYTES % 16.3 % (18.0-39.1); MEAN CORPUSCULAR HEMOGLOBIN 31.7 pg (28-32); MEAN CORPUSCULAR HGB CONC 30.7 g/dL (31-35); MEAN CORPUSCULAR VOLUME 103.1 fL (81-99); MONOCYTES # (AUTO) 1.1 (0.2-0.8); MONOCYTES % 10.6 % (4.4-11.3); NEUTROPHILS # (AUTO) 7.1 (2.1-6.9); NEUTROPHILS % 71.4 % (38.7-80.0); PLATELET COUNT 246 x10e3/uL (140-360); RED BLOOD COUNT 2.87 x10e6/uL (4.3-5.7); RED CELL DISTRIBUTION WIDTH 17.4 % (11.7-14.4)
[2019-10-23 16:55] LABS: BLOOD UREA NITROGEN 8 mg/dL (7-26); BUN/CREATININE RATIO 11 (6-25); CALCIUM 8.8 mg/dL (8.4-10.2); CARBON DIOXIDE 28 mmol/L (22-29); CHLORIDE 111 mmol/L (98-107); CREATININE, SERUM 0.76 mg/dL (0.72-1.25); EST GLOMERULAR FILTRATION RATE > 60 ML/MIN (60-); GLUCOSE 98 mg/dL (74-118); SODIUM 146 mmol/L (136-145)
--- NOTE | 2019-10-23 18:44 | NUR ---
WALKING ROUNDS PERFORMED, RECEIVED PT LAYING SEMI FOWLERS IN BED, AAOX3, RR EVEN AND NON-LABORED, O2 BY NC AT 2L. REMOVED BEDPAN WITH DAYSHIFT NURSE AND PERFORMED ANTONY CARE, CHANGED DIAPER, REPOSITIONED DRAW SHEET AND DISPOSABLE MAGO UNDER PATIENT. LEFT PT LAYING SEMI FOWLERS IN BED, BED IN LOW LOCKED POSITION, SIDE RAILS UPX2, CALL LIGHT AND PHONE WITHIN REACH.
[2019-10-23] MEDS: SODIUM CHLORIDE 0.9% 1000ML 1,000 ML IV SCH (20:48)
[2019-10-23] MEDS: MONTELUKAST SODIUM 10 MG TAB PO SCH (20:48)
[2019-10-23] MEDS: SIMVASTATIN 20 MG TAB PO SCH (20:48)
[2019-10-24] VITALS: BP 142/80
[2019-10-24] MEDS: PIPER-TAZ 3.375 GM 50 ML IV SCH ×3 (00:03→11:00)
[2019-10-24 04:00] VITALS: BP 138/80
--- NOTE | 2019-10-24 06:56 | NUR ---
RECEIVED BEDSIDE SHIFT REPORT FROM OFF GOING NURSE. PATIENT IS RESTING IN BED. NO ACUTE DISTRESS NOTED AT THIS TIME. CALL LIGHT WITHIN REACH. BED IN THE LOWEST POSITION. BED ALARM ON.
[2019-10-24] MEDS: TAMSULOSIN HCL 0.4 MG CAP PO SCH (08:09)
[2019-10-24] MEDS: LORATADINE 10 MG TAB PO SCH (08:09)
[2019-10-24] MEDS: ASPIRIN 81 MG CHEW TAB PO SCH (08:09)
[2019-10-24 08:15] VITALS: BP 103/63
--- NOTE | 2019-10-24 10:09 | NUR ---
CALLED REPORT TO KATHI PARKER AT [facility] AT THIS TIME.
--- NOTE | 2019-10-24 10:30 | NUR ---
ATTEMPTED TO CALL X3 TO NOTIFY OF PATIENT BEING TRANSFERRED TO SNF ([facility]). NO ANSWER. WILL ATTEMPT LATER.
[2019-10-24] MEDS ORDERED: ONDANSETRON HCL 4 MG ORAL DISINTEGRATING TAB PO PRN (11:00)
[2019-10-24 11:57] VITALS: BP 109/71
--- NOTE | 2019-10-24 12:35 | NUR ---
Pt. expressed no spiritual or emotional concerns at this time. Corporate Controller provided hospitality and information on how to reach franchise sales director, if needed. No need to follow at this time. EARL HOSKINS Corporate Controller Spiritual Care Department O: [phone]
--- NOTE | 2019-10-24 12:53 | NUR ---
WOUND CARE CONSULT FOR 79 YO MALE HX OF SEPTIC SHOCK,UTI BRIAN 14 ON MODERATE PUP STATUS AND INTERVENTIONS AND ALTERNATING PRESSURE MATTRESS LABS: WBC-9.91 HGB_ 9.1 GLUCOSE-98 SKIN ASSESSMENT COMPLETE PATIENT PRESENTS WITH STAGE 1 RED NONBLANCHABLE AREA TO SACRUM 4CM X3CM RECOMMENDATIONS: NURSING TO CONTINUE TO MAINTAIN MODERATE PUP STATUS AND INTERVENTIONS AND ALTERNATING PRESSURE MATTRESS NURSING TO CONTINUE TO ASSIST PATIENT OUT OF BED FOR MEALS AND MUCH TOLERATED NURSING TO CONTINUE TO ASSIST PATIENT NEEDED WITH MEALS AND NUTRITIONAL SUPPLEMENTS TO ENSURE PROPER REQUIREMENTS FOR HEALING NURSING TO CONTINUE TO OFFLOAD FEET AND HEELS NEEDED WITH PILLOW SUSPENSION WHEN IN BED NURSING TO KEEP ANTONY AREA AND BOTTOM CLEAN AND DRY DAILY AND APPLY VENELEX OINTMENT AND ALLEVYN FOAM DRESSING Addendum: 10/24/19 at 1258 by Nick Boyer RN Amended: Links added.
--- NOTE | 2019-10-24 13:04 | NUR ---
RECEIVED DISCHARGE ORDER FROM DR. HOLMAN. PATIENT IS IN STABLE CONDITION. IV LINE TO RIGHT FOREARM PATENT, SALINE FLUSHED. REPORT CALLED IN TO KATHI PARKER AT [facility]. ALL PERSONAL ITEMS AND TRANSFER PAPERWORK GIVEN TO EMS PERSONNEL. PATIENT TRANSFERRED VIA AMBULANCE.
[2019-10-25] MEDS ORDERED: BALSAM PERU/CASTOR OIL 60 GM OINT...G. TP SCH (09:00)
== END 2019-10-24 13:00 | DRG 871 ==
LOC: ER 01:42 → ERHOLD 05:56 → IMCU 08:32 → MED/SURG 10-21 20:24
PROVIDERS: ADMIT Internal Medicine; ATTEND Internal Medicine
DX: A41.9 Sepsis, unspecified organism (principal); R65.21 Severe sepsis with septic shock; N39.0 Urinary tract infection, site not specified; I13.0 Hypertensive heart and chronic kidney disease with heart failure and stage 1 through stage 4 chronic kidney disease, or unspecified chronic kidney disease; N17.9 Acute kidney failure, unspecified; E87.6 Hypokalemia; E11.22 Type 2 diabetes mellitus with diabetic chronic kidney disease; N18.9 Chronic kidney disease, unspecified; I50.9 Heart failure, unspecified; W01.0XXA Fall on same level from slipping, tripping and stumbling without subsequent striking against object, initial encounter; Z91.81 History of falling; Y93.89 Activity, other specified; Y92.013 Bedroom of single-family (private) house as the place of occurrence of the external cause; Z95.1 Presence of aortocoronary bypass graft; D64.9 Anemia, unspecified; I25.10 Atherosclerotic heart disease of native coronary artery without angina pectoris; E83.51 Hypocalcemia; N40.0 Benign prostatic hyperplasia without lower urinary tract symptoms; R53.81 Other malaise; Z11.59 Encounter for screening for other viral diseases; Z79.84 Long term (current) use of oral hypoglycemic drugs
CPT/HCPCS: 36415; 71045; 80048; 80053; 80061; 81001; 82550; 82553; 82948; 83036; 83605; 83735; 83880; 84100; 84484; 85025; 85610; 85730; 87040; 87635; 93005; 94640; 97139; 99251; 99284; J1940; J2543; J3370; J3480; J7030; J7040